=== PATIENT | female | born 1990 | race Caucasian/White ===

== ENCOUNTER → 2018-11-20 | Outpatient (CLI) | payer MEDICAID ==
[2018-11-20 14:59] LABS: HCT 34.2 % (34.0-46.0); HGB 11.1 gm/dL (11.4-16.0); MCH 30.1 pg (25.0-35.0); MCHC 32.5 g/dL (31.0-37.0); MCV 92.8 fL (80.0-100.0); Mean Platelet Volume 6.8; Platelet Count 350 k/uL (150-450); RBC 3.69 m/uL (3.80-5.40); RDW 12.5 % (11.5-15.5); WBC 8.3 k/uL (3.8-10.6)
== END | disposition home or self-care (01) ==
LOC: LABWHC1 14:34
PROVIDERS: ATTEND Family Medicine
DX: Z13.0 Encounter for screening for diseases of the blood and blood-forming organs and certain disorders involving the immune mechanism (principal)
CPT/HCPCS: 36415; 85027

== ENCOUNTER → 2023-07-18 | Outpatient (CLI) | payer MEDICAID ==
[2023-07-18 12:13] LABS: Glucose 3 Hour, Gest 86 mg/dL
== END | disposition home or self-care (01) ==
LOC: LABWHC1 07:51
PROVIDERS: ATTEND Obstetrics & Gynecology
DX: O99.810 Abnormal glucose complicating pregnancy (principal); Z3A.00 Weeks of gestation of pregnancy not specified
CPT/HCPCS: 36415; 82951; 82952

== ENCOUNTER → 2023-10-10 | Outpatient (CLI) | payer MEDICAID ==
[2023-10-10 12:12] LABS: Glucose 3 Hour, Gest 87 mg/dL
== END | disposition home or self-care (01) ==
LOC: LABWHC1 07:46
PROVIDERS: ATTEND Obstetrics & Gynecology
DX: O99.810 Abnormal glucose complicating pregnancy (principal); Z3A.00 Weeks of gestation of pregnancy not specified
CPT/HCPCS: 36415; 82951; 82952

== ENCOUNTER 2023-12-29 09:45 | Inpatient (IN) | payer MEDICAID ==
[2023-12-25 10:19] VITALS: BMI 33.1
[2023-12-29] MEDS ORDERED: CARBOPROST TROMETHAMINE 250 MCG/ML 1 ML AMP IM PRN (10:16)
[2023-12-29] MEDS ORDERED: TRANEXAMIC 1,000 MG/100ML-NACL 1,000 MG in EMPTY BAG 1 BAG IV PRN (10:16)
[2023-12-29] MEDS ORDERED: OXYTOCIN 10 UNIT/ML 1 ML VIAL IM PRN (10:16)
[2023-12-29 10:20] LABS: Glucose,Whole Blood 86 mg/dL (70-110)
[2023-12-29 11:33] LABS: Basophils % (A) 0 %; Eosinophils # (A) 0.1 k/uL (0-0.7); Eosinophils % (A) 1 %; HCT 35.9 % (34.0-46.0); HGB 12.1 gm/dL (11.4-16.0); Lymphocytes # (A) 1.7 k/uL (1.0-4.8); Lymphocytes % (A) 17 %; MCH 31.1 pg (25.0-35.0); MCHC 33.7 g/dL (31.0-37.0); MCV 92.1 fL (80.0-100.0); Mean Platelet Volume 8.1; Monocytes # (A) 0.8 k/uL (0-1.0); Monocytes % (A) 8 %; Neutrophils # (A) 7.3 k/uL (1.3-7.7); Neutrophils % (A) 72 %; Platelet Count 321 k/uL (150-450); RDW 13.4 % (11.5-15.5); WBC 10.1 k/uL (3.8-10.6)
[2023-12-29] MEDS: LACTATED RINGERS 1,000 ML IV ONE (11:38)
[2023-12-29] MEDS: CITRIC ACID-SODIUM CITRATE 15 ML CUP PO ONE (11:38)
[2023-12-29] MEDS ORDERED: ONDANSETRON 4 MG/2 ML VIAL ONE (11:57)
[2023-12-29] MEDS ORDERED: NALBUPHINE 10 MG/ML (10 ML MDV) ONE (11:57)
[2023-12-29] MEDS ORDERED: PHENYLEPHRINE-0.9% NACL SYG 1,000 MCG/10 ML SYRINGE ONE (11:57)
[2023-12-29] MEDS ORDERED: KETOROLAC 15 MG/ML 1 ML VIAL ONE (11:57)
[2023-12-29] MEDS ORDERED: MORPHINE SULFATE (PF) 0.3 MG/0.3 ML SYR ONE (11:57)
[2023-12-29] MEDS ORDERED: NALBUPHINE 10 MG/ML (10 ML MDV) IV PRN (12:39)
[2023-12-29] MEDS ORDERED: diphenhydrAMINE 50 MG/ML 1 ML VIAL IVP PRN ×3 (12:39→13:02)
[2023-12-29] MEDS ORDERED: ONDANSETRON 4 MG/2 ML VIAL IVP PRN (12:39)
[2023-12-29] MEDS ORDERED: NALOXONE 0.4 MG/ML 1 ML VIAL IV PRN ×2 (12:39→13:02)
--- NOTE | 2023-12-29 12:59 | P.HPOB ---
History of Present Illness H&P Date: 12/29/23 Chief Complaint: Term , history of myomectomy This is a 33-year-old 1 para 0 woman who is admitted at 39 weeks gestation for planned primary low transverse section secondary to history of uterine myomectomy. She has an estimated due date of 01/07/2024 based on LMP consistent with 12 week ultrasound. Her has been complicated by gestational diabetes that has been well controlled with diet alone. She has a history of tobacco use and has cut back significantly in the . Laboratory data: Blood type O+, antibody screen negative, rubella immune, VDRL nonreactive, hepatitis B surface antigen negative, hepatitis C antibodies non reactive, HIV negative, gonorrhea and clinic cultures negative, glucose tolerance testing abnormal, group B strep negative Past medical history anxiety and depression, history of uterine fibroids. Social history: Uterine myomectomy in 2019 Social history , positive for tobacco use Family history noncontributory Review of Systems All systems: negative Past Medical History Past Medical History: No Reported History Additional Past Medical History / Comment(s): GDM History of Any Multi-Drug Resistant Organisms: None Reported Past Surgical History: No Surgical Hx Reported Additional Past Surgical History / Comment(s): myomectomy Past Anesthesia/Blood Transfusion Reactions: No Reported Reaction, Family History of Problems w/ Anesthesia Additional Past Anesthesia/Blood Transfusion Reaction / Comment(s): aunt with malignant hyperthermia Past Psychological History: No Psychological Hx Reported Smoking Status: Current every day smoker Past Alcohol Use History: None Reported Additional Past Alcohol Use History / Comment(s): smokes 3-4 cigarettes per day in current Past Drug Use History: None Reported - Past Family History Mother Family Medical History: Cancer Additional Family Medical History / Comment(s): breast CA Father Family Medical History: Cancer, Hyperlipidemia, Hypertension Additional Family Medical History / Comment(s): esophageal CA Medications and Allergies Home Medications Medication Instructions Recorded Confirmed Type Aspirin [Adult Low Dose Aspirin EC] 81 mg PO DAILY 12/25/23 12/29/23 History Cholecalciferol [Vitamin D3 (25 25 mcg PO DAILY 12/25/23 12/29/23 History Mcg = 1000 Iu)] Latanoprost Ophth [Xalatan 0.005%] 1 drops BOTH EYES HS 12/25/23 12/29/23 History Magnesium 400 mg PO DAILY 12/25/23 12/29/23 History Vit No.179/Iron/Folic 1 each PO DAILY 12/25/23 12/29/23 History [ Tablet] diphenhydrAMINE HCL [Benadryl] 25 mg PO HS PRN 12/25/23 12/29/23 History Famotidine [Pepcid] 20 mg PO HS 12/29/23 12/29/23 History Allergies Allergy/AdvReac Type Severity Reaction Status Date / Time No Known Allergies Allergy Verified 12/29/23 10:12 Exam Vital Signs Temp Pulse Resp BP Pulse Ox 12/29/23 10:12 97.3 F L 87 16 118/74 97 Intake and Output 12/28/23 12/29/23 12/29/23 22:59 06:59 14:59 Other: Weight 98.883 kg Targeted physical exam is performed: This is a visibly gravid, female in no acute distress. HEENT exam is unremarkable. Her breathing is unlabored and her heart is a regular rate and rhythm. The abdomen is gravid, soft and nontender and fundal height consistent with term . Pelvic exam was deferred. The bilateral lower extremity is with trace edema. Reactive NST. Results Result Diagrams: 12/29/23 10:10 Assessment and Plan (1) History of myomectomy Current Visit: Yes Status: Acute Code(s): Z98.890 - OTHER SPECIFIED POSTPROCEDURAL STATES SNOMED Code(s): 053162912 (2) Gestational diabetes Current Visit: Yes Status: Acute Code(s): O24.419 - GESTATIONAL DIABETES MELLITUS IN , UNSP CONTROL SNOMED Code(s): 77223416 (3) Advanced maternal age (AMA) in Current Visit: Yes Status: Acute Code(s): FCI6251 - SNOMED Code(s): 927608320 (4) Tobacco abuse Current Visit: Yes Status: Acute Code(s): Z72.0 - TOBACCO USE SNOMED Code(s): 043514025 Plan: This is a 33-year-old 1 para 0 woman admitted at 39 weeks gestation for primary low transverse section secondary to history of uterine myomectomy. The risks benefits and alternatives of this procedure have been reviewed with the patient and her at length in the office. Risks include but are not limited to bleeding, transfusion, infection, and injury to bowel, bladder, ureters, other maternal or infant structures. The anesthesia complications etc. Consent has been obtained. status is reassuring by external monitoring. She is group B strep negative and Rh+.
[2023-12-29] MEDS ORDERED: HYDROmorphone 1 MG/ML 1 ML SYRINGE IVP PRN (13:02)
[2023-12-29] MEDS ORDERED: ZOLPIDEM 5 MG TAB PO PRN (13:02)
[2023-12-29] MEDS ORDERED: HYDROmorphone 2 MG TAB PO PRN (13:02)
[2023-12-29] MEDS ORDERED: METOCLOPRAMIDE 5 MG/ML 2 ML VIAL IVP PRN (13:02)
[2023-12-29] MEDS ORDERED: diphenhydrAMINE 25 MG CAP PO PRN (13:02)
--- NOTE | 2023-12-29 13:02 | P.OP ---
Date of Procedure: 12/29/23 Preoperative Diagnosis: 39 week intrauterine History of uterine myomectomy Advanced maternal age Gestational diabetes Maternal tobacco use Postoperative Diagnosis: same Procedure(s) Performed: Primary low transverse section Anesthesia: spinal Surgeon: Ruby Vega Community Outreach Specialist #1: Anel Moser Estimated Blood Loss (ml): 405 IV fluids (ml): 900 Urine output (ml): 150 Pathology: none sent Condition: stable Disposition: floor Indications for Procedure: History of uterine myomectomy Operative Findings: Male in the vertex occiput transverse position with nuchal cord 2, Apgars of 9 at 1 minute and 9 at 5 minutes weighing 7 lbs. 13 oz., 3530 g, intact, three-vessel cord placenta with some calcifications. Extensive anterior uterine venous sinuses noted. Description of Procedure: After the patient was met preoperatively and all questions were answered, she was taken to the operating room where spinal anesthetic was administered without incident. She was then positioned, prepped and draped in the dorsal supine position with a leftward tilt. Ppoe catheter was placed. After anesthetic was confirmed adequate, a low transverse skin incision was made following the pre- existing scar. This was carried down to the underlying fascia both sharply and with the electrocautery. The fascia was then incised in the midline and extended bilaterally with the Ledezma scissors. The superior aspect of the fascial incision was elevated and the underlying rectus muscles dissected off sharply and with the electrocautery. The inferior aspect of the fascial incision was also elevated and the underlying rectus muscles dissected off sharply. The muscles were adherent in the midline. These were bluntly and the peritoneum was tented up with hemostats. The peritoneum was entered sharply with the Metzenbaum scissors. The peritoneal incision was extended inferiorly and superiorly with good visualization of the bladder. The bladder blade was placed. The vesicouterine peritoneum was identified, tented up and entered sharply, the bladder flap was created both sharply and digitally. A low transverse uterine incision was then made sharply and carried down to the underlying amniotic membranes. Extensive anterior low uterine vascularity left greater than right side was noted. Uterine incision was placed accordingly. Membranes were ruptured and clear fluid was noted. The uterine incision was extended bilaterally bluntly. The infant's head was delivered from the incision without difficulty. The nose and mouth were bulb suctioned. The rest of the infant was delivered onto the field without difficulty. And cut and the was taken to the warmer. An intact, three-vessel cord placenta was then manually removed and the uterus was exteriorized. The uterus was cleared of all clot and debris. The uterine incision was delineated with Prado clamps. The uterine incision was then closed in a running locked fashion with 0 Vicryl suture. A second imbricating layer of the same was placed. Additional imarrf-da-yioow sutures were placed where necessary for hemostasis The uterus was then returned to the abdomen and the gutters were cleared of all clot and debris. The uterine incision was reinspected and Bovie electrocautery was utilized were necessary for hemostasis. The fascial edges, peritoneal edges and rectus muscles were inspected and Bovie electrocautery utilized were necessary for hemostasis. The fascia was then closed in a running fashion with 0 Vicryl suture. The subcuticular tissue was copiously suction irrigated and Bovie electrocautery utilized were necessary for hemostasis. 3-0 Vicryl suture was utilized to reapproximate the subcuticular tissue. The skin was then closed in a subcutaneous fashion with 4-0 Vicryl suture. All counts reported to me as correct by the operating room staff at the end of the procedure. The patient received antibiotics preoperatively and Pitocin following cord clamp. Mother and were both transported from the room in stable condition.
[2023-12-29] MEDS: LACTATED RINGERS 1,000 ML IV SCH (13:14)
[2023-12-29] MEDS: ACETAMINOPHEN TAB 500 MG TAB PO SCH (15:20)
[2023-12-29] MEDS: miSOPROStoL 200 MCG TAB PO PRN (16:22)
[2023-12-29] MEDS: METHYLERGONOVINE 0.2 MG/ML 1 ML AMP IM PRN (16:22)
[2023-12-29] MEDS ORDERED: OXYTOCIN 30 UNITS/500 ML NS 30 UNIT in SALINE 1 500ML.BAG IV SCH (16:30)
[2023-12-29 16:34] LABS: Basophils % (A) 0 %; Eosinophils # (A) 0.1 k/uL (0-0.7); Eosinophils % (A) 1 %; HGB 10.6 gm/dL (11.4-16.0); Lymphocytes % (A) 13 %; MCH 30.9 pg (25.0-35.0); MCHC 33.2 g/dL (31.0-37.0); MCV 93.2 fL (80.0-100.0); Mean Platelet Volume 8.4; Monocytes # (A) 1.1 k/uL (0-1.0); Monocytes % (A) 7 %; Neutrophils # (A) 11.3 k/uL (1.3-7.7); Neutrophils % (A) 77 %; Platelet Count 295 k/uL (150-450); RBC 3.44 m/uL (3.80-5.40); RDW 13.3 % (11.5-15.5); WBC 14.7 k/uL (3.8-10.6)
--- NOTE | 2023-12-29 17:33 | P.PN ---
Progress Note - Text Progress Note Date: 12/29/23 Patient is status post primary low-transverse section completed approximately 1300. While breast feeding she was noted to have 2 episodes of uterine atony and bleeding. The first episode is approximate 300 and mouth in the second episode was approximately 800 mL's with large clots. Patient was initially treated with IV fluid bolus, intravenous Pitocin, oral Cytotec 200 g and IM Methergine 1. She continued to have moderate bleeding. On exam patient is appearing somewhat pale and reports feeling lightheaded. The uterus is soft and above the level of the umbilicus. On bimanual examination the cervix is approximately 3 cm dilated and there is a small amount of clot in the low uterine segment was gently evacuated. The Marti uterine suction system is inserted into the uterus per product protocol and the cervical ring is infused with 60 mL's of saline for a good seal. The uterus on bimanual examination immediately was firm and 3 cm below the umbilicus. There is a small amount of bright red blood in the tubing. This is hooked to wall suction per product protocol. There is approximately 200 mL's of concentrated appearing urine in the Pope catheter bag. Vital signs blood pressure 124/80, pulse 79, O2 sat 99%. Preoperative hemoglobin is 12.1, post operative hemoglobin is currently 10.1. Essman and plan: Postop status post primary low transverse section, uncomplicated now with uterine atony. Marti intrauterine device is currently in place. We will monitor very closely for hemodynamic status. Repeat hemoglobin in 2 hours and again in the morning.
[2023-12-29] MEDS ORDERED: KETOROLAC 15 MG/ML 1 ML VIAL IVP SCH (19:00)
[2023-12-29] MEDS: IBUPROFEN 600 MG TAB PO SCH (19:49)
[2023-12-29] MEDS: SENNOSIDES-DOCUSATE SODIUM 1 EACH TAB PO SCH (21:52)
[2023-12-29 22:56] LABS: HCT 28.8 % (34.0-46.0); MCH 31.9 pg (25.0-35.0); MCHC 34.7 g/dL (31.0-37.0); Mean Platelet Volume 8.5; Platelet Count 284 k/uL (150-450); RBC 3.13 m/uL (3.80-5.40); RDW 13.2 % (11.5-15.5); WBC 16.9 k/uL (3.8-10.6)
[2023-12-30] MEDS: diphenhydrAMINE 50 MG CAP PO PRN (00:01)
[2023-12-30 07:10] LABS: Basophils % (A) 0 %; Eosinophils # (A) 0.1 k/uL (0-0.7); Eosinophils % (A) 1 %; HCT 26.4 % (34.0-46.0); Lymphocytes # (A) 2.1 k/uL (1.0-4.8); Lymphocytes % (A) 19 %; MCH 31.6 pg (25.0-35.0); MCHC 34.2 g/dL (31.0-37.0); MCV 92.4 fL (80.0-100.0); Mean Platelet Volume 8.7; Monocytes # (A) 0.9 k/uL (0-1.0); Monocytes % (A) 8 %; Neutrophils # (A) 7.7 k/uL (1.3-7.7); Neutrophils % (A) 69 %; Platelet Count 265 k/uL (150-450); RBC 2.86 m/uL (3.80-5.40); RDW 13.3 % (11.5-15.5); WBC 11.1 k/uL (3.8-10.6)
--- NOTE | 2023-12-30 08:29 | P.PNOBGPC ---
Subjective - Subjective Principal diagnosis: Postoperative day 1 Interval history: She did well overnight with minimal output from the intrauterine catheter device. She denies significant pain. She is feeling hungry. Hemoglobin 9.0 this morning. Patient reports: Reports appetite normal, Reports pain well controlled [place]: doing well, nursing well Objective - Vital Signs Latest vital signs: Vital Signs Temp Pulse Resp BP Pulse Ox 12/30/23 06:46 98.7 F 81 16 108/62 98 12/30/23 03:00 77 16 106/74 99 12/30/23 02:00 73 16 100/64 99 12/30/23 01:00 69 17 100/58 99 12/30/23 00:00 69 17 100/58 95 12/29/23 23:00 72 16 116/72 97 12/29/23 22:00 69 16 139/76 98 12/29/23 21:00 72 16 118/74 99 12/29/23 20:30 68 16 111/73 99 12/29/23 20:00 74 16 120/74 99 12/29/23 19:30 75 16 131/84 99 12/29/23 19:00 98.2 F 78 16 125/53 100 12/29/23 18:45 71 16 122/73 98 12/29/23 18:30 75 16 119/70 99 12/29/23 18:15 70 16 120/70 99 12/29/23 18:00 76 16 122/77 100 12/29/23 17:45 72 16 117/65 100 12/29/23 17:39 99 12/29/23 17:30 76 16 122/77 99 12/29/23 17:15 85 16 124/69 98 12/29/23 17:00 16 96 12/29/23 15:39 16 97 12/29/23 15:00 98 F 72 14 104/57 97 12/29/23 14:45 71 16 109/57 98 12/29/23 14:30 83 16 102/59 98 12/29/23 14:15 73 14 107/58 98 12/29/23 14:00 69 16 118/56 98 12/29/23 13:45 72 16 119/65 97 12/29/23 13:39 14 97 12/29/23 13:30 71 14 117/64 98 12/29/23 13:15 90 14 112/82 99 12/29/23 13:00 96.6 F L 80 16 116/57 98 12/29/23 12:39 16 98 12/29/23 10:12 97.3 F L 87 16 118/74 97 Intake and Output 12/29/23 12/30/23 12/30/23 22:59 06:59 14:59 Output Total 1653 2130 Balance -1653 -2130 Output: Urine 450 2100 Output, Quantitative 1203 30 Blood Loss Other: Voiding Method Indwelling Catheter - Exam Extremities: Present: normal Abdomen: Present: normal appearance, soft. Absent: distention, tenderness Incision: Present: normal, dry, intact, dressed Uterus: Present: normal, firm Comments: Intrauterine catheter device removed with out incident. Uterus is firm well below the umbilicus. No active bleeding observed upon on immediate removal. - Labs Labs: Abnormal Lab Results - Last 24 Hours (Table) 12/29/23 12/29/23 12/30/23 Range/Units 16:24 22:21 07:00 WBC 14.7 H 16.9 H 11.1 H (3.8-10.6) k/uL RBC 3.44 L 3.13 L 2.86 L (3.80-5.40) m/uL Hgb 10.6 L 10.0 L 9.0 L (11.4-16.0) gm/dL Hct 32.0 L 28.8 L 26.4 L (34.0-46.0) % Neutrophils # 11.3 H (1.3-7.7) k/uL Monocytes # 1.1 H (0-1.0) k/uL Assessment and Plan (1) History of myomectomy Current Visit: Yes Status: Acute Code(s): Z98.890 - OTHER SPECIFIED POSTPROCEDURAL STATES SNOMED Code(s): 232995391 (2) Gestational diabetes Current Visit: Yes Status: Acute Code(s): O24.419 - GESTATIONAL DIABETES MELLITUS IN , UNSP CONTROL SNOMED Code(s): 61223777 (3) Advanced maternal age (AMA) in Current Visit: Yes Status: Acute Code(s): SHM6281 - SNOMED Code(s): 308140260 (4) Tobacco abuse Current Visit: Yes Status: Acute Code(s): Z72.0 - TOBACCO USE SNOMED Code(s): 604057295 (5) atony of uterus with hemorrhage Narrative/Plan: Preoperative hemoglobin was 12.1, this morning it is 9.0. She has had no active bleeding throughout the night with the Marti intrauterine pressure catheter. This was removed this morning with no immediate active bleeding observed. Plan is to observe this morning, removed Pope catheter and carefully ambulate as indicated. I will advance her diet now. Current Visit: Yes Status: Acute Code(s): O72.1 - OTHER IMMEDIATE HEMORRHAGE SNOMED Code(s): 14779558 (6) Acute post-hemorrhagic anemia Current Visit: Yes Status: Acute Code(s): D62 - ACUTE POSTHEMORRHAGIC ANEMIA SNOMED Code(s): 232156708 Plan: 33-year-old 1 now para 1 woman status post primary low transverse section postop day 1 complicated by postoperative uterine atony and hemorrhage. Intrauterine pressure catheter was in place throughout the night with no ongoing active bleeding. She has good uterine tone this morning and the device was removed. We will monitor closely and advance cautiously.
--- NOTE | 2023-12-30 12:42 | P.PN ---
Progress Note - Text Progress Note Date: 12/30/23 Postoperative day 1 status post section under spinal anesthesia, and intrathecal morphine given for postoperative analgesia, patient doing well, there is no anesthesia related complications, Patient had no headache, vital signs stable , Assessment and plan= postop day 1 status post , doing well there is no anesthesia related complication.
--- NOTE | 2023-12-31 08:39 | P.DS ---
Providers Date of admission: 12/29/23 09:45 Expected date of discharge: 12/31/23 Attending physician: Ruby Vega Primary care physician: Stated None - Discharge Diagnosis(es) (1) History of myomectomy Current Visit: Yes Status: Acute (2) Gestational diabetes Current Visit: Yes Status: Acute (3) Advanced maternal age (AMA) in Current Visit: Yes Status: Acute (4) Tobacco abuse Current Visit: Yes Status: Acute (5) atony of uterus with hemorrhage Current Visit: Yes Status: Acute (6) Acute post-hemorrhagic anemia Current Visit: Yes Status: Acute Hospital Course: This is a 33 year old 1 now para 1 woman who is admitted at 39 weeks gestation for planned primary low transverse section secondary to history of uterine myomectomy. Her had been complicated by gestational diabetes, diet controlled, and maternal tobacco use. Following admission she went to the operating room where she underwent an unremarkable low transverse section. Findings at the time of surgery were notable for extensive anterior uterine venous sinuses is. She was delivered of a liveborn male with a nuchal cord 2 with Apgars of 9 at 1 minute and 9 at 5 minutes weighing 7 lbs. 13 oz. Please see the operative report for details. In her immediate postoperative course she did have significant uterine atony with approximately total of 1100 hrs. of postoperative blood loss. This was managed with IV and oral uterotonic's as well as placement of the Marti intrauterine catheter. This resolved the atony almost immediately and was left in place overnight. Her preoperatoerative hemoglobin was 12.1 and by postoperative day #1 and had Stabilized at 9.0. On postoperative day one the intrauterine catheter was removed as was her Pope catheter. She was able to ambulate and void without difficulty. She tolerated general diet and her pain was well- controlled. Her uterine incision was dry and intact. The postoperative day #2 she continued to do extremely well. She had moderate lochia and was breast- feeding successfully. Her vital signs were stable and her incision is well- healing. She was therefore discharged home on postoperative day #2 with routine instructions for postoperative care and follow-up. Procedures: Primary low transverse section Patient Condition at Discharge: Good Plan - Discharge Summary Discharge Rx Participant: Yes New Discharge Prescriptions: New Ibuprofen [Motrin] 600 mg PO Q6H tab Acetaminophen Tab [Tylenol] 1,000 mg PO Q6H tab Sennosides-Docusate Sodium [Senokot-S] 2 each PO BID@ tab Discontinued Aspirin [Adult Low Dose Aspirin EC] 81 mg PO DAILY No Action Vit No.179/Iron/Folic [ Tablet] 1 each PO DAILY Latanoprost Ophth [Xalatan 0.005%] 1 drops BOTH EYES HS Famotidine [Pepcid] 20 mg PO HS diphenhydrAMINE HCL [Benadryl] 25 mg PO HS PRN PRN Reason: Insomnia Magnesium 400 mg PO DAILY Cholecalciferol [Vitamin D3 (25 Mcg = 1000 Iu)] 25 mcg PO DAILY Discharge Medication List Cholecalciferol [Vitamin D3 (25 Mcg = 1000 Iu)] 25 mcg PO DAILY 12/25/23 [History] Latanoprost Ophth [Xalatan 0.005%] 1 drops BOTH EYES HS 12/25/23 [History] Magnesium 400 mg PO DAILY 12/25/23 [History] Vit No.179/Iron/Folic [ Tablet] 1 each PO DAILY 12/25/23 [History] diphenhydrAMINE HCL [Benadryl] 25 mg PO HS PRN 12/25/23 [History] Famotidine [Pepcid] 20 mg PO HS 12/29/23 [History] Acetaminophen Tab [Tylenol] 1,000 mg PO Q6H tab 12/31/23 [Rx] Ibuprofen [Motrin] 600 mg PO Q6H tab 12/31/23 [Rx] Sennosides-Docusate Sodium [Senokot-S] 2 each PO BID@ tab 12/31/23 [Rx] Follow up Appointment(s)/Referral(s): Ruby Vega MD [STAFF PHYSICIAN] - 01/13/24 11:30 am (Post Appointment 02-10-2024 at 11:30am) Activity/Diet/Wound Care/Special Instructions: Follow-up in 2 weeks after surgery in the office. Call the office with any concerning signs or symptoms including fever greater than 101, severe abdominal pain, heavy vaginal bleeding, signs of wound infection, increased swelling or redness of the lower extremities, signs of depression. No driving for 2 weeks after surgery. No heavy lifting or vigorous activity until reevaluated in the office. No intercourse for 6 weeks after delivery. Discharge Disposition: HOME SELF-CARE
[2023-12-31] MEDS: MEASLES-MUMPS-RUBELLA VACC/PF 12,500 UNIT/0.5 ML VIAL SQ ONE (09:02)
[2023-12-31 10:18] VITALS: BP 111/70; PULSE 85; RESP 18; TEMP 97.6
== END 2023-12-31 12:40 | disposition home or self-care (01) | DRG 787 ==
LOC: 4FBP 09:45
PROVIDERS: ADMIT Obstetrics & Gynecology; ATTEND Obstetrics & Gynecology
PROC: 10D00Z1 Extraction of Products of Conception, Low, Open Approach (ICD-10-PCS; principal; 2023-12-29 12:00)
PROC: 0W3R7ZZ Control Bleeding in Genitourinary Tract, Via Natural or Artificial Opening (ICD-10-PCS; principal; 2023-12-29 12:00)
PROC: 3E0134Z Introduction of Serum, Toxoid and Vaccine into Subcutaneous Tissue, Percutaneous Approach (ICD-10-PCS; 2023-12-31)
DX: O34.29 Maternal care due to uterine scar from other previous surgery (principal); D62 Acute posthemorrhagic anemia; O72.1 Other immediate postpartum hemorrhage; O24.420 Gestational diabetes mellitus in childbirth, diet controlled; O90.81 Anemia of the puerperium; O99.334 Smoking (tobacco) complicating childbirth; N85.8 Other specified noninflammatory disorders of uterus; F17.210 Nicotine dependence, cigarettes, uncomplicated; O99.344 Other mental disorders complicating childbirth; F41.9 Anxiety disorder, unspecified; F32.A Depression, unspecified; O69.81X0 Labor and delivery complicated by cord around neck, without compression, not applicable or unspecified; Z79.82 Long term (current) use of aspirin; Z79.899 Other long term (current) drug therapy; Z23 Encounter for immunization; Z3A.39 39 weeks gestation of pregnancy; Z37.0 Single live birth
CPT/HCPCS: 85025; 85027; 86850; 86900; 86901; 90707